=== PATIENT | female | born 1945 | race Caucasian/White ===

== ENCOUNTER → 2024-01-31 | Outpatient (BNVA) | payer MEDICARE, SELFPAY | END | disposition home or self-care (01) | PROVIDERS: PCP Internal Medicine; Referring Provider Internal Medicine; Visit Provider Urology | DX: C64.9 Malignant neoplasm of unspecified kidney, except renal pelvis (principal); Z90.5 Acquired absence of kidney; I12.9 Hypertensive chronic kidney disease with stage 1 through stage 4 chronic kidney disease, or unspecified chronic kidney disease; E11.22 Type 2 diabetes mellitus with diabetic chronic kidney disease; N18.30 Chronic kidney disease, stage 3 unspecified; E78.00 Pure hypercholesterolemia, unspecified | CPT/HCPCS: 81003; 99212; G0463 ==

== ENCOUNTER 2024-03-20 08:31 | Outpatient (RCR) | payer MEDICARE, SELFPAY ==
--- NOTE | 2024-03-26 05:12 | CTCCONSULT_ITS ---
Patient: MEHRDAD STOVALL : 1945 MR#: [id number] Page 2 of 2 CONSULTATION NOTE DATE OF CONSULTATION: 03/20/2024 NAME: MEHRDAD STOVALL ACCOUNT: [id number] : 1945 AGE: 79 REFERRING PHYSICIAN: Geraldo Sarkar MD PRIMARY PHYSICIAN: Won Hopson MD REASON FOR VISIT: New consult HISTORY OF PRESENT ILLNESS: 79-year-old female who underwent right renal nephrectomy after she was found to have a renal mass. P atient says that her surgery was last year and she has been doing well since that time. She was advi sed no further treatment needed but need closer monitoring and that is the reason she want to follow- up with us. 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 No left renal mass. 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 carvedilol - 25 mg 1 tab Twice a Day 2. hydrALAZINE - 100 mg 1 tab Daily 3. iron - 65 mg 1 tab Twice a Day 4. Miralax - 17 gram 1 dose Daily 5. Norvasc - 5 mg Twice a Day 6. Smitha-Jay - 1 tab Daily 7. valsartan-hydrochlorothiazide - 160-12.5 mg 1 tab Daily 8. Vitamin D3 - 1,000 unit 1 Capsule Daily Medications Last Reconciled by Nancy Hermosillo MD on 03/20/2024 ALLERGIES: No Known Allergies REVIEW OF SYSTEMS: A complete 14-point review of systems was performed and is negative except as noted in interval histo ry. PHYSICAL EXAMINATION: VITAL SIGNS: Temperature?97.1, B/P?129/74, Height?66?inches, Oxygen?Saturation?97% Weight?145?lbs PAIN: 0 - No pain ECOG Performance Status: 0 - Asymptomatic and fully active GENERAL APPEARANCE: Appears well, in no apparent distress, appropriately interactive. HEENT: Normocephalic, no temporal wasting, normal conjunctiva, no scleral icterus, normal hearing, li ps without lesions, neck normal range of motion. CARDIOVASCULAR: Not assessed. PULMONARY: Normal respiratory effort, no respiratory distress or use of accessory muscles, speaking i n full sentences, no tachypnea. EXTREMITIES: No pedal edema or cyanosis. SKIN: Normal skin appearance. NEUROLOGIC: Alert and ORIENTED x4. PSHYCHIATRIC: Appropriate affect, mood normal, behavior normal, intact thought and speech. LABORATORY DATA: I have personally reviewed and interpreted each of Ms. Stovall?s relevant lab tests, abnormal findin gs are below: Date IMPRESSION/PLAN: Serous cystadenoma of right kidney Patient had treatment with the right nephrectomy No lymphadenopathy on last CT scan No lymph nodes were removed Patient already planned for another imaging As patient is now single kidney patient, I will follow the imaging done at [facility] Discussed signs and symptoms of recurrent tumor CBC CMP Get records for patient's coming up appointments before my next appointment RETURN TO CLINIC: RTC in 6 months BILLING AND COMPLIANCE: I reviewed external records from providers outside my specialty as summarized above. I spent a total of 50 minutes on this patient?s care on the day of their visit excluding time spent related to any bi lled procedures. This time includes time spent with the patient as well as time spent documenting in the medical record, reviewing patients records and tests, obtaining history, placing orders, communi cating with other healthcare professionals, counseling the patient, family or caregiver, and/or care coordination for the diagnoses above. Electronically Signed by: Rodolfo Brooks MD T: 5:09 AM CC: Won?PAZ Hopson PCP: Won Hopson Referring: Geraldo Sarkar This document was completed utilizing speech recognition software. Grammatical errors, random word in sertions, pronoun errors, and incomplete sentences are an occasional consequence of this system due t o software limitations, ambient noise, and hardware issues. Any formal questions or concerns about th e content, text or information contained within the body of this dictation should be directly address ed to the provider for clarification.
== END 2024-04-10 23:59 | disposition home or self-care (01) ==
LOC: SCTC 08:31
PROVIDERS: PCP Internal Medicine; Referring Provider Urology; Visit Provider Internal Medicine Hematology & Oncology
DX: D30.01 Benign neoplasm of right kidney (principal); Z90.5 Acquired absence of kidney
CPT/HCPCS: 99213; G0463

== ENCOUNTER → 2024-04-27 | Outpatient (CLI) | payer MEDICARE, SELFPAY ==
--- NOTE | 2024-04-27 | XR_ITS ---
Examination: Sternum 2 views TECHNIQUE: Oblique lateral sternum 2 views Exam date and time: April 27, 2024 1142 hours INDICATIONS: Swelling below the sternum one month FINDINGS: Prominent osteopenia No sternal fracture No cortical bone obstruction IMPRESSION: No sternal fracture or cortical bone obstruction Consider ultrasound soft tissue sternum follow-up as clinically warranted
--- NOTE | 2024-04-27 | XR_ITS ---
Examination: Ribs, left, 4 views Technique left, RIBS AP, RPO, LPO, AP coned lower ribs 5 views Exam date and time: April 27, 2024 1142 hours INDICATIONS: Swelling and pain involving the left ribs this week Findings: Significant osteopenia No pneumothorax No cortical bone destruction involving the ribs No acute fracture IMPRESSION: No rib fractures
--- NOTE | 2024-04-27 | XR_ITS ---
Examination: PA lateral chest 2 views TECHNIQUE: Upright PA lateral chest 2 views Exam date and time: April 27, 2024 1146 hours INDICATIONS: Swelling below the sternum one month FINDINGS: COPD with moderate hyperexpansion Pleural parenchymal scarring left base Normal heart size No lobar pneumonia or pulmonary edema Severe osteopenia Sternum appears intact, soft tissue does appear prominent below the sternum IMPRESSION: COPD Sternum appears intact, soft tissue prominence below the sternum Consider CT scan chest abdomen postcontrast follow-up
== END | disposition home or self-care (01) ==
LOC: CDIM 10:51
PROVIDERS: PCP Internal Medicine; Referring Provider Internal Medicine; Visit Provider Internal Medicine
DX: R22.2 Localized swelling, mass and lump, trunk (principal); R07.81 Pleurodynia; J44.9 Chronic obstructive pulmonary disease, unspecified
CPT/HCPCS: 71046; 71101; 71120

== ENCOUNTER → 2024-05-29 | Outpatient (CLI) | payer MEDICARE, SELFPAY ==
[2024-05-29 12:03] LABS: Basophils % (Auto) 1 % (0-2.5); Eosinophils # (Auto) 0.1 Thou/mm3 (0.0-0.5); Eosinophils % (Auto) 3 % (0-10); Hematocrit 36.2 % (36.0-46.0); Hemoglobin 11.7 g/dL (12.0-16.0); Immature Granulocytes % (Auto) 1 % (0-0); Immature Granulocytes Auto 0.02 Thou/mm3 (0.00-0.00); Lymphocytes # (Auto) 1.1 Thou/mm3 (1.0-4.8); Lymphocytes % (Auto) 26 % (10-50); Mean Corpuscular HGB Conc 32.3 g/dl (31.0-37.0); Mean Corpuscular Hemoglobin 30.9 pg (25.0-35.0); Mean Corpuscular Volume 96 fL (80-100); Monocytes # (Auto) 0.3 Thou/mm3 (0.0-0.8); Monocytes % (Auto) 6 % (0-12); Neutrophils # (Auto) 2.7 Thou/mm3 (1.8-7.7); Neutrophils % (Auto) 63 % (37-80); Nucleated Red Blood Cell % 0 /100 WBC (0); Platelet Count 159 Thou/mm3 (140-440); Red Blood Count 3.79 Miln/mm3 (4.00-5.20); White Blood Count 4.2 Thou/mm3 (3.6-11.0)
[2024-05-29 12:20] LABS: Folate 18.85 ng/mL (>5.38); Vitamin B12 649 pg/mL (211-911)
[2024-05-29 12:27] LABS: Alanine Aminotransferase 14 U/L (10-49); Albumin, Serum 4.1 gm/dL (3.4-4.8); Albumin/Globulin Ratio 2.1 (1.2-2.2); Alkaline Phosphatase 70 U/L (46-116); Anion Gap 8 (7-16); Aspartate Amino Transferase 20 U/L (0-34); BUN/Creatinine Ratio 22 Ratio (12-20); Bilirubin,Total 0.5 mg/dL (0.3-1.2); Blood Urea Nitrogen 31 mg/dL (9-23); Calcium 10.4 mg/dL (8.3-10.6); Calcium (Corrected) 10.4 mg/dL (8.5-10.1); Carbon Dioxide 31.2 mMol/L (20.0-31.0); Chloride 106 mMol/L (98-107); Creatinine (Component) 1.4 mg/dL (0.6-1.3); Glucose 89 mg/dL (74-106); Osmolality,Calculated 294 (275-295); Sodium 145 mMol/L (136-145); Total Protein 6.1 gm/dL (5.7-8.2); eGFR 39 See Note
[2024-05-29 12:56] LABS: Ferritin 154 ng/mL (7.3-270.7); Total Iron Binding Capacity 267 mcg/dL (250-425)
[2024-05-29 13:06] LABS: Iron 72 mcg/dL (50-170); Percent Iron Saturation 26 % (20-55); Unsaturated Iron Binding 195 (225-295)
== END | disposition home or self-care (01) ==
LOC: COPL 11:08
PROVIDERS: PCP Urology; Referring Provider Internal Medicine Hematology & Oncology; Visit Provider Internal Medicine Hematology & Oncology
DX: C64.9 Malignant neoplasm of unspecified kidney, except renal pelvis (principal)
CPT/HCPCS: 36415; 80053; 82607; 82728; 82746; 83540; 83550; 85025

== ENCOUNTER → 2024-06-12 | Outpatient (CLI) | payer MEDICARE, SELFPAY ==
--- NOTE | 2024-06-12 13:00 | XR_ITS ---
Examination: CT abdomen and pelvis without contrast. Coronal 3-D reconstructions. Sagittal 2-D reconstructions. Date and time of exam:June 12, 2024 1255 hours Comparison January 30, 2024 INDICATIONS: Diagnosis malignant neoplasm right kidney except renal pelvis, surgery 2022 restaging CTDI: vol (mGy): 6.51 DLP: (mGycm): 318 Technique: Axial images of the abdomen have been obtained, 3 mm slice thickness Intravenous contrast material has not been administered. Low dose protocols were performed. One or more of the following dose reduction techniques were used; automated exposure control, adjustment of the mA and/or KV according to patient size, use of iterative reconstruction technique. Findings: Multiple subcentimeter pulmonary nodules No visualized liver or splenic lesion No pancreatic mass Absent right kidney no tumor mass in the right renal fossa No left renal mass lesion Subcentimeter periaortic lymph nodes again noted No bowel obstruction Colonic diverticulosis Contracted urinary bladder Prominent osteopenia IMPRESSION: Multiple subcentimeter pulmonary nodules, recommend CT chest without contrast follow-up to compare with the January 30, 2024 exam
== END | disposition home or self-care (01) ==
PROVIDERS: PCP Internal Medicine; Referring Provider Urology; Visit Provider Urology
DX: R91.8 Other nonspecific abnormal finding of lung field (principal); C64.1 Malignant neoplasm of right kidney, except renal pelvis
CPT/HCPCS: 74176

== ENCOUNTER 2024-06-21 13:02 | Outpatient (RCR) | payer MEDICARE, SELFPAY ==
--- NOTE | 2024-07-15 18:17 | CTCFLWUP_ITS ---
Patient: MEHRDAD STOVALL : 1945 Page 4 of 6 FOLLOW UP NOTE DATE OF SERVICE: 06/21/2024 NAME: MEHRDAD STOVALL ACCOUNT: [id number] : 1945 AGE: 79 INTERVAL HISTORY: No new complaints ONCOLOGY HISTORY:?[facility] Hx? 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 No left renal mass. Multiple thyroid nodules STAGE/TNM: T3 NX M0 TREATMENT HISTORY: Care?Plan Start?Date Cycle Day Intent HISTORY OF PRESENT ILLNESS: 79-year-old female who underwent right renal nephrectomy after she was found to have a renal mass. Patient says that her surgery was last year and she has been doing well since that time. She was advised no further treatment needed but need closer monitoring and that is the reason she want to follow-up with us. 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 carvedilol - 25 mg 1 tab Twice a Day 2. hydrALAZINE - 100 mg 1 tab Daily 3. iron - 65 mg 1 tab Twice a Day 4. Miralax - 17 gram 1 dose Daily 5. Norvasc - 5 mg Twice a Day 6. Smitha-Jay - 1 tab Daily 7. valsartan-hydrochlorothiazide - 160-12.5 mg 1 tab Daily 8. Vitamin D3 - 1,000 unit 1 Capsule Daily?Palabra Meds? Medications Last Reconciled by Kanika Hough MA on 06/21/2024 ALLERGIES: No Known Allergies REVIEW OF SYSTEMS: A complete 14-point review of systems was performed and is negative except as noted in interval history. PHYSICAL EXAMINATION:?[facility]Block PE? VITAL SIGNS: Temperature?98.2, B/P?152/77, Oxygen?Saturation?98% Weight?138?lbs PAIN: 0 - No pain GENERAL APPEARANCE: Appears well, in no apparent distress, appropriately interactive. HEENT: Normocephalic, no temporal wasting, normal conjunctiva, no scleral icterus, normal hearing, lips without lesions, neck normal range of motion. CARDIOVASCULAR: Not assessed. PULMONARY: Normal respiratory effort, no respiratory distress or use of accessory muscles, speaking in full sentences, no tachypnea. EXTREMITIES: No pedal edema or cyanosis. SKIN: Normal skin appearance. NEUROLOGIC: Alert and ORIENTED x4. PSHYCHIATRIC: Appropriate affect, mood normal, behavior normal, intact thought and speech. LABORATORY DATA: I have personally reviewed and interpreted each of the patient?s relevant lab tests, abnormal findings are below: Date 05/29/24 ??WHITE?BLOOD?COUNT?(Thou/mm3) 4.2 ??RED?BLOOD?COUNT?(Miln/mm3) 3.79?L ??HEMOGLOBIN?(gm/dl) 11.7?L ??HEMATOCRIT?(%) 36.2 ??PLATELET?COUNT?(Thou/mm3) 159 ??NEUTROPHILS?%,?AUTO?(%) 63 ??LYMPH?%,?AUTO?(%) 26 ??NEUTROPHILS,?AUTO?(Thou/mm3) 2.7 ??GLUCOSE,RANDOM?(mg/dL) 89 ??BLOOD?UREA?NITROGEN?(mg/dL) 31?H ??CREATININE?(mg/dL) 1.40?H ??SODIUM?(mmol/L) 145 ??POTASSIUM?(mmol/L) 4.0 ??CHLORIDE?(mmol/L) 106 ??CrCl?(CandG)?(ml/min) 34.94 ??AST/SGOT?(Unit/L) 20 ??ALT/SGPT?(Unit/L) 14 ??ALKALINE?PHOSPHATASE?(Unit/L) 70 ??BILIRUBIN,?TOTAL?(mg/dL) 0.5 ??PROTEIN?TOTAL?(gm/dl) 6.1 ??ALBUMIN,?SERUM?(gm/dl) 4.1 ??GLOBULIN?(gm/dl) 2.0?L ??ALBUMIN/GLOBULIN?RATIO 2.1 ??CALCIUM,?SERUM?(mg/dL) 10.4 ??CALCIUM?SERUM?(CORRECTED)?(mg/dL) 10.4?H ??TOTAL?IRON?BINDING?CAP?(S*)?(mcg/dL) 267 ??UNBOUND?IBC?(mcg/dL) 195?L ASSESSMENT/PLAN:?Sheron Brooks Assessment/Plan? Serous cystadenoma of right kidney Patient had treatment with the right nephrectomy No lymphadenopathy on last CT scan No lymph nodes were removed Patient already planned for another imaging As patient is now single kidney patient, I will follow the imaging done at [facility] Discussed signs and symptoms of recurrent tumor CBC CMP Get records for patient's coming up appointments before my next appointment CT scan 06/12/2024 showed multiple subcentimeter nodules recommendation is to repeat CT chest ORDERS: Order # Description [id number] Serum Protein Electrophoresis + Serum Immunofixation Electrophoresis + Beta-2 Microglobulin + Quant Immunoglobulins + Free kappa and lambda light chains plus ratio, quantitative [id number] Bone Scan, Whole body + DXA L-Spine and Hip [id number] Ferritin + Vitamin B-12 + Folic Acid; Serum [id number] Follow Up 2 Months RETURN TO CLINIC: 2 months BILLING AND COMPLIANCE: I reviewed external records from providers outside my specialty as summarized above. I spent a total of 50 minutes on this patient?s care on the day of their visit excluding time spent related to any billed procedures. This time includes time spent with the patient as well as time spent documenting in the medical record, reviewing patients records and tests, obtaining history, placing orders, communicating with other healthcare professionals, counseling the patient, family or caregiver, and/or care coordination for the diagnoses above. Electronically Signed by: Rodolfo Brooks MD T: 6:15 PM CC: Won?Emiliana? PCP: Won Hopson Referring: Won Hopson This document was completed utilizing speech recognition software. Grammatical errors, random word insertions, pronoun errors, and incomplete sentences are an occasional consequence of this system due to software limitations, ambient noise, and hardware issues. Any formal questions or concerns about the content, text or information contained within the body of this dictation should be directly addressed to the provider for clarification.
== END 2024-07-09 23:59 | disposition home or self-care (01) ==
LOC: SCTC 13:02
PROVIDERS: PCP Internal Medicine; Referring Provider Internal Medicine; Visit Provider Internal Medicine Hematology & Oncology
DX: D30.01 Benign neoplasm of right kidney (principal); Z90.5 Acquired absence of kidney; R91.8 Other nonspecific abnormal finding of lung field
CPT/HCPCS: 99212; G0463

== ENCOUNTER → 2024-06-21 | Outpatient (CLI) | payer MEDICARE, SELFPAY ==
[2024-06-21 16:11] LABS: Ferritin 187 ng/mL (7.3-270.7); Folate 23.83 ng/mL (>5.38); Vitamin B12 669 pg/mL (211-911)
[2024-07-02 05:04] LABS: Albumin 4.1 g/dL (3.8-4.8); Alpha-1-Globulin 0.2 g/dL (0.2-0.3); Alpha-2-Globulin 0.7 g/dL (0.5-0.9); Beta-1-Globulin 0.3 g/dL (0.4-0.6); Beta-2-globulin 0.3 g/dL (0.2-0.5); Gamma Globulin 0.7 g/dL (0.8-1.7); Immunoglobulin A 173 mg/dL (70-320); Immunoglobulin G 877 mg/dL (600-1540); Kappa Light Chain, Free 34.6 mg/L (3.3-19.4); Lambda Light Chain, Free 19.2 mg/L (5.7-26.3)
[2024-07-02 07:02] LABS: Beta 2 Microglobulin 4.09 mg/L (< OR = 2.51); Immunoglobulin M 41 mg/dL (50-300); Protein, total, serum 6.3 g/dL (6.1-8.1)
== END | disposition home or self-care (01) ==
PROVIDERS: PCP Internal Medicine; Referring Provider Internal Medicine Hematology & Oncology; Visit Provider Internal Medicine Hematology & Oncology
DX: C64.9 Malignant neoplasm of unspecified kidney, except renal pelvis (principal)
CPT/HCPCS: 36415; 82232; 82607; 82728; 82746; 82784; 83521; 84155; 84165; 86334

== ENCOUNTER → 2024-07-18 | Outpatient (CLI) | payer MEDICARE, SELFPAY ==
--- NOTE | 2024-07-18 12:30 | XR_ITS ---
Examination: Bone scan whole body, radioisotope Date and time of exam: July 18, 2024 1211 hrs. Indications: Diagnosis malignant neoplasm kidney status post hysterectomy November 01, 2023, restaging Technique: Study has been performed with intravenous administration of 25.6 mci 99M technetium MDP. Anterior, posterior whole body images are obtained. Images have been obtained including the lower extremities. Findings: Increased isotope accumulation L1 on the right side Asymmetric uptake about the knees Subtle increased uptake L5 on the left Impression: Positive bone scan but nonspecific, recommend plain films thoracic lumbar spine AP pelvis follow-up
== END | disposition home or self-care (01) ==
LOC: SNUC 08:28
PROVIDERS: PCP Internal Medicine; Referring Provider Internal Medicine Hematology & Oncology; Visit Provider Internal Medicine Hematology & Oncology
DX: R93.7 Abnormal findings on diagnostic imaging of other parts of musculoskeletal system (principal); C64.9 Malignant neoplasm of unspecified kidney, except renal pelvis
CPT/HCPCS: 78306; A9503

== ENCOUNTER → 2024-07-31 | Outpatient (BNVA) | payer MEDICARE, SELFPAY | END | disposition home or self-care (01) | PROVIDERS: PCP Internal Medicine; Referring Provider Internal Medicine; Visit Provider Urology | DX: N28.89 Other specified disorders of kidney and ureter (principal); E04.1 Nontoxic single thyroid nodule; I12.9 Hypertensive chronic kidney disease with stage 1 through stage 4 chronic kidney disease, or unspecified chronic kidney disease; E11.22 Type 2 diabetes mellitus with diabetic chronic kidney disease; N18.30 Chronic kidney disease, stage 3 unspecified; E78.00 Pure hypercholesterolemia, unspecified | CPT/HCPCS: 81003; 99212; G0463 ==

== ENCOUNTER → 2024-08-01 | Outpatient (CLI) | payer MEDICARE, SELFPAY ==
--- NOTE | 2024-08-01 12:40 | XR_ITS ---
Examination: Bone densitometry Date and time of exam:August 01, 2024 1246 hours INDICATIONS: Menopause age 52 diabetic rheumatoid arthritis diagnosis personal history osteopenia Technique: Lumbar spine and hip total bone mineralization values of an calculated. Peak reference and age match control results have been displayed. Findings: Lumbar spine total bone mineralization is1.134 gm/cm2. This is 0.8 standard deviations above peak reference. This is 3.3 standard deviations above age-matched controls. Hip total bone mineralization is 0.664 gm/cm2 This is 2.3 standard deviations below peak reference. This is 0.4 standard deviations below age-matched controls Impression: There is normal mineralization based on lumbar spine measurements. There is osteoporosis based on hip measurements Lumbar mineralization is decreased 3.7% compared with September 03, 2015 Hip mineralization is decreased 8.9% compared with September 03, 2015
== END | disposition home or self-care (01) ==
PROVIDERS: PCP Internal Medicine; Referring Provider Internal Medicine Hematology & Oncology; Visit Provider Internal Medicine Hematology & Oncology
DX: M85.88 Other specified disorders of bone density and structure, other site (principal)
CPT/HCPCS: 77080

== ENCOUNTER → 2024-08-08 | Outpatient (CLI) | payer MEDICARE, SELFPAY ==
--- NOTE | 2024-08-08 16:00 | XR_ITS ---
Examination: CT chest, without intravenous contrast. Sagittal and coronal 2-D reconstructions. Exam date and time: August 08, 2024 1707 hours Comparison January 30, 2024 chest abdomen and pelvis INDICATIONS: Diagnosis malignant neoplasm right kidney, multiple pulmonary nodules on CT chest abdomen and pelvis January 30, 2024 with stable periaortic lymph nodes restaging CTDI:vol (mGy) 8.72 DLP: (mGycm) 339 Technique: Multiple 3.0 mm axial sections of the chest to been obtained. Bone and lung density settings are obtained. Sagittal and coronal 2-D reconstructions have been obtained. Low dose protocols were performed. One or more of the following dose reduction techniques were used; automated exposure control, adjustment of the mA and/or KV according to patient size, use of iterative reconstruction technique. Findings: Multiple bilateral thyroid nodules several calcified No thoracic aortic aneurysm dilatation. Main pulmonary artery segment measures 36 mm No paratracheal tracheobronchial or bronchopulmonary adenopathy No change in size of the multiple bilateral pulmonary nodules, no new pulmonary nodules No interval pneumonia or pulmonary edema Trace pericardial effusion measuring up to 3 mm No visualized liver or splenic lesion Left kidney is visualized no hydronephrosis Prominent osteopenia IMPRESSION: Stable bilateral subcentimeter pulmonary nodules, no new pulmonary nodules compared with January 30, 2024
== END | disposition home or self-care (01) ==
LOC: CCTX 16:12
PROVIDERS: PCP Internal Medicine; Referring Provider Internal Medicine Hematology & Oncology; Visit Provider Internal Medicine Hematology & Oncology
DX: R91.8 Other nonspecific abnormal finding of lung field (principal); C64.9 Malignant neoplasm of unspecified kidney, except renal pelvis
CPT/HCPCS: 71250

== ENCOUNTER 2024-08-23 14:13 | Outpatient (RCR) | payer MEDICARE, SELFPAY ==
--- NOTE | 2024-08-30 14:18 | CTCFLWUP_ITS ---
Patient: MEHRDAD TREVINO : 1945 Page 6 of 8 FOLLOW UP NOTE DATE OF SERVICE: 08/23/2024 NAME: MEHRDAD TREVINO ACCOUNT: [id number] : 1945 AGE: 79 INTERVAL HISTORY: Subjective: Chief Complaint Follow-up for right kidney cystadenoma, review of CT scan results, evaluation of bone density History of Present Illness Mehrdad Trevino, a female patient with a history of right ovarian cancer, cystadenoma, and right kidney nephrectomy, presents for follow-up of multiple conditions including lung nodules and bone health concerns. The patient's lung nodules, previously identified on a CT scan in June, are reported to be stable with no new nodules detected. 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 The patient has been diagnosed with osteoporosis of the hips, with bone density reported to be weaker compared to 2016. Regarding medication adherence, the patient reports taking vitamin D3 daily, Renalite for kidney health, and a supplement for eye health containing vitamins A, E, B12, selenium, and copper. She also takes iron every other day at night. However, she is not currently taking calcium or a multivitamin as recommended. The patient's right kidney cystadenoma, which was previously removed, shows no signs of recurrence. There is no mention of any current symptoms or functional impairments related to her medical conditions. Medications and Supplements - Vitamin D3 - Taken daily with food at lunchtime - Renalite - Taken for kidney health - Eye supplement - Contains vitamin A, E, B12, selenium, and copper - Iron - Taken every other day at night Review of Systems Musculoskeletal: Positive for arthritis in spine. 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 No left renal mass. Multiple thyroid nodules STAGE/TNM: T3 NX M0 TREATMENT HISTORY: Care?Plan Start?Date Cycle Day Intent Zoledronic?Acid?4?mg?adjuvant 08/23/2024 1 180 Maintenance HISTORY OF PRESENT ILLNESS: 79-year-old female who underwent right renal nephrectomy after she was found to have a renal mass. Patient says that her surgery was last year and she has been doing well since that time. She was advised no further treatment needed but need closer monitoring and that is the reason she want to follow-up with us. OTHER MEDICAL HISTORY/CONDITIONS: CHRONIC RENAL INSUFFICIENCY DIABETES MELLITUS HYPERTENSION RIGHT KIDNEY MASS RIGHT OVARIAN MASS MEASLES/MUMPS/RUBELLA A CHILD CHICKENPOX CHILD TONSILLITIS VALLEY FEVER IN 1994 RIGHT RADICAL NEPHRECTOMY AT [facility] 11/04/22 BILATERAL SALPINGO-OOPHERECTOMY BY DR JORGE [facility] CHOLECYSTECTOMY AT 32YRS FAMILY HISTORY: Father:?DENIES Mother:?DENIES Sibling:?DENIES Children:?DENIES?,?NO?CHILDREN Cancer History:?RIGHT KIDNEY RENAL CELL CA 10/2022 SOCIAL HISTORY: Occupational?History:?RETIRED [employer] Education?Level:?College Graduate, 4 year degree Marital?Status:?Single Tobacco?Use:?STOPPED?SMOKING?IN?1971 ETOH?Use:?DENIES Drug?Note:?DENIES Social?History?Note:?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 acetaminophen - 325 mg tab As directed 2. carvedilol - 25 mg 1 tab Twice a Day 3. hydrALAZINE - 100 mg 1 tab Daily 4. iron - 65 mg 1 tab Every other day 5. Miralax - 17 gram 1 dose Daily 6. Norvasc - 5 mg Twice a Day 7. Smitha-Jay - 1 tab Daily 8. valsartan-hydrochlorothiazide - 160-12.5 mg 1 tab Daily 9. Vision Formula - 1 tab Daily 10. Vitamin D3 - 1,000 unit 1 Capsule Daily Medications Last Reconciled by Eun Holder RN on 08/23/2024 ALLERGIES: No Known Allergies REVIEW OF SYSTEMS: A complete 14-point review of systems was performed and is negative except as noted in interval history. PHYSICAL EXAMINATION: VITAL SIGNS: Temperature?99.2, B/P?149/70, Oxygen?Saturation?98% Weight?139?lbs PAIN: 0 - No pain ECOG Performance Status: 0 - Asymptomatic and fully active GENERAL APPEARANCE: Appears well, in no apparent distress, appropriately interactive. HEENT: Normocephalic, no temporal wasting, normal conjunctiva, no scleral icterus, normal hearing, lips without lesions, neck normal range of motion. CARDIOVASCULAR: Not assessed. PULMONARY: Normal respiratory effort, no respiratory distress or use of accessory muscles, speaking in full sentences, no tachypnea. EXTREMITIES: No pedal edema or cyanosis. SKIN: Normal skin appearance. NEUROLOGIC: Alert and ORIENTED x4. PSHYCHIATRIC: Appropriate affect, mood normal, behavior normal, intact thought and speech. LABORATORY DATA: I have personally reviewed and interpreted each of the patient?s relevant lab tests, abnormal findings are below: Date 05/29/24 ??WHITE?BLOOD?COUNT?(Thou/mm3) 4.2 ??RED?BLOOD?COUNT?(Miln/mm3) 3.79?L ??HEMOGLOBIN?(gm/dl) 11.7?L ??HEMATOCRIT?(%) 36.2 ??PLATELET?COUNT?(Thou/mm3) 159 ??NEUTROPHILS?%,?AUTO?(%) 63 ??LYMPH?%,?AUTO?(%) 26 ??NEUTROPHILS,?AUTO?(Thou/mm3) 2.7 ??GLUCOSE,RANDOM?(mg/dL) 89 ??BLOOD?UREA?NITROGEN?(mg/dL) 31?H ??CREATININE?(mg/dL) 1.40?H ??SODIUM?(mmol/L) 145 ??POTASSIUM?(mmol/L) 4.0 ??CHLORIDE?(mmol/L) 106 ??CrCl?(CandG)?(ml/min) 34.94 ??AST/SGOT?(Unit/L) 20 ??ALT/SGPT?(Unit/L) 14 ??ALKALINE?PHOSPHATASE?(Unit/L) 70 ??BILIRUBIN,?TOTAL?(mg/dL) 0.5 ??PROTEIN?TOTAL?(gm/dl) 6.1 ??ALBUMIN,?SERUM?(gm/dl) 4.1 ??GLOBULIN?(gm/dl) 2.0?L ??ALBUMIN/GLOBULIN?RATIO 2.1 ??CALCIUM,?SERUM?(mg/dL) 10.4 ??CALCIUM?SERUM?(CORRECTED)?(mg/dL) 10.4?H ??TOTAL?IRON?BINDING?CAP?(S*)?(mcg/dL) 267 ??UNBOUND?IBC?(mcg/dL) 195?L ASSESSMENT/PLAN: Serous cystadenoma of right kidney Patient had treatment with the right nephrectomy No lymphadenopathy on last CT scan No lymph nodes were removed Patient already planned for another imaging As patient is now single kidney patient, I will follow the imaging done at [facility] Discussed signs and symptoms of recurrent tumor Get records for patient's coming up appointments before my next appointment CT scan 06/12/2024 showed multiple subcentimeter nodules recommendation is to repeat CT chest Assessment and Plan: Mehrdad Trevino, female patient with history of right ovarian cystadenoma and nephrectomy, presenting for follow-up of multiple medical conditions including osteoporosis and lung nodules. Osteoporosis Assessment: Patient has osteoporosis of the hips, confirmed by recent bone density scan. Bone density has decreased since 2016. Currently not taking calcium or vitamin D supplements regularly. Plan: - Start annual infusion therapy for osteoporosis, pending insurance approval - Start Centrum Silver (multivitamin for women over 50) 1 tablet PO daily with lunch - Continue vitamin D3 supplementation daily with food, preferably at lunchtime - Avoid taking other medications with vitamin D3 Lung Nodules Assessment: Patient has stable lymph nodules in both lungs, as seen on recent CT scan. No new nodules identified. 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 Valley fever can cause osteolytic lesions. Additional findings at L4-L5 level, likely arthritic in nature. Plan: - Continue monitoring History of Right Ovarian Cystadenoma and Nephrectomy Assessment: Patient has a history of right ovarian cystadenoma and nephrectomy. No evidence of tumor recurrence. Plan: - Continue regular follow-up and monitoring Chronic Kidney Disease Assessment: Patient has a history of right kidney removal (nephrectomy). Currently taking Renalite as prescribed by Dr. Esqueda for kidney health. Plan: - Continue Renalite as prescribed - Encourage increased water intake ORDERS: Order # Description [id number] Infusion 1 Hour [id number] Infusion 1 Hour [id number] Infusion 1 Hour [id number] Infusion 1 Hour [id number] Infusion 1 Hour RETURN TO CLINIC: BILLING AND COMPLIANCE: I reviewed external records from providers outside my specialty as summarized above. I spent a total of 50 minutes on this patient?s care on the day of their visit excluding time spent related to any billed procedures. This time includes time spent with the patient as well as time spent documenting in the medical record, reviewing patients records and tests, obtaining history, placing orders, communicating with other healthcare professionals, counseling the patient, family or caregiver, and/or care coordination for the diagnoses above. Electronically Signed by: Rodolfo Brooks MD T: 6:56 AM CC: Won?PAZ Hopson PCP: Won Hopson Referring: Won Hopson This document was completed utilizing speech recognition software. Grammatical errors, random word insertions, pronoun errors, and incomplete sentences are an occasional consequence of this system due to software limitations, ambient noise, and hardware issues. Any formal questions or concerns about the content, text or information contained within the body of this dictation should be directly addressed to the provider for clarification.
== END 2024-09-08 23:59 | disposition home or self-care (01) ==
LOC: SCTC 14:13
PROVIDERS: PCP Internal Medicine; Referring Provider Internal Medicine; Visit Provider Internal Medicine Hematology & Oncology
DX: M81.0 Age-related osteoporosis without current pathological fracture (principal); R91.8 Other nonspecific abnormal finding of lung field; Z90.5 Acquired absence of kidney; Z85.43 Personal history of malignant neoplasm of ovary; M89.9 Disorder of bone, unspecified
CPT/HCPCS: 99212; G0463

== ENCOUNTER → 2024-10-09 | Outpatient (CLI) | payer MEDICARE, SELFPAY ==
[2024-10-09 11:32] LABS: Basophils # (Auto) 0.1 Thou/mm3 (0.0-0.2); Basophils % (Auto) 1 % (0-2.5); Eosinophils # (Auto) 0.2 Thou/mm3 (0.0-0.5); Eosinophils % (Auto) 4 % (0-10); Hematocrit 34.3 % (36.0-46.0); Hemoglobin 11.4 g/dL (12.0-16.0); Immature Granulocytes Auto 0.01 Thou/mm3 (0.00-0.00); Lymphocytes # (Auto) 1.0 Thou/mm3 (1.0-4.8); Lymphocytes % (Auto) 26 % (10-50); Mean Corpuscular HGB Conc 33.2 g/dl (31.0-37.0); Mean Corpuscular Hemoglobin 31.4 pg (25.0-35.0); Mean Corpuscular Volume 95 fL (80-100); Monocytes # (Auto) 0.4 Thou/mm3 (0.0-0.8); Monocytes % (Auto) 10 % (0-12); Neutrophils # (Auto) 2.4 Thou/mm3 (1.8-7.7); Neutrophils % (Auto) 60 % (37-80); Nucleated Red Blood Cell # 0.00 Thou/mm3 (0.00-0.00); Nucleated Red Blood Cell % 0 /100 WBC (0); Platelet Count 136 Thou/mm3 (140-440); RDW Standard Deviation 44.8 fL (36.4-46.3); Red Blood Count 3.63 Miln/mm3 (4.00-5.20); White Blood Count 4.0 Thou/mm3 (3.6-11.0)
[2024-10-09 11:51] LABS: Alanine Aminotransferase 11 U/L (10-49); Albumin, Serum 4.0 gm/dL (3.4-4.8); Albumin/Globulin Ratio 1.7 (1.2-2.2); Alkaline Phosphatase 70 U/L (46-116); Anion Gap 5 (7-16); Aspartate Amino Transferase 22 U/L (0-34); BUN/Creatinine Ratio 18 Ratio (12-20); Bilirubin,Total 0.6 mg/dL (0.3-1.2); Blood Urea Nitrogen 23 mg/dL (9-23); Calcium 9.7 mg/dL (8.3-10.6); Calcium (Corrected) 9.7 mg/dL (8.5-10.1); Carbon Dioxide 33.1 mMol/L (20.0-31.0); Chloride 107 mMol/L (98-107); Creatinine (Component) 1.3 mg/dL (0.6-1.3); Globulin 2.4 gm/dL (2.3-3.5); Glucose 90 mg/dL (74-106); Osmolality,Calculated 292 (275-295); Potassium 4.2 mMol/L (3.4-5.1); Sodium 145 mMol/L (136-145); Total Protein 6.4 gm/dL (5.7-8.2); eGFR 42 See Note
== END | disposition home or self-care (01) ==
LOC: SCTO 10:36
PROVIDERS: PCP Internal Medicine; Referring Provider Internal Medicine Hematology & Oncology; Visit Provider Internal Medicine Hematology & Oncology
DX: C64.9 Malignant neoplasm of unspecified kidney, except renal pelvis (principal); M80.8B Other osteoporosis with current pathological fracture, pelvis
CPT/HCPCS: 36415; 80053; 85025

== ENCOUNTER → 2024-10-10 | Outpatient (CLI) | payer MEDICARE, SELFPAY ==
[2024-10-10 09:17] LABS: Collection Type, Urine Clean Catch
[2024-10-10 09:36] LABS: Basophils # (Auto) 0.1 Thou/mm3 (0.0-0.2); Basophils % (Auto) 2 % (0-2.5); Eosinophils # (Auto) 0.1 Thou/mm3 (0.0-0.5); Eosinophils % (Auto) 4 % (0-10); Hematocrit 36.2 % (36.0-46.0); Hemoglobin 11.9 g/dL (12.0-16.0); Immature Granulocytes Auto 0.01 Thou/mm3 (0.00-0.00); Lymphocytes # (Auto) 1.0 Thou/mm3 (1.0-4.8); Lymphocytes % (Auto) 26 % (10-50); Mean Corpuscular HGB Conc 32.9 g/dl (31.0-37.0); Mean Corpuscular Hemoglobin 31.6 pg (25.0-35.0); Mean Corpuscular Volume 96 fL (80-100); Monocytes # (Auto) 0.3 Thou/mm3 (0.0-0.8); Monocytes % (Auto) 8 % (0-12); Neutrophils # (Auto) 2.3 Thou/mm3 (1.8-7.7); Neutrophils % (Auto) 60 % (37-80); Nucleated Red Blood Cell # 0.00 Thou/mm3 (0.00-0.00); Nucleated Red Blood Cell % 0 /100 WBC (0); Platelet Count 141 Thou/mm3 (140-440); RDW Standard Deviation 45.2 fL (36.4-46.3); Red Blood Count 3.76 Miln/mm3 (4.00-5.20); White Blood Count 3.7 Thou/mm3 (3.6-11.0)
[2024-10-10 09:48] LABS: Amorphous Crystals,Urine Present (Absent); Bilirubin,Urine Negative (Negative); Blood,Urine Negative (Negative); Color,Urine Yellow (Lt Yel-Yel); Glucose, Urine Negative (Negative); Hyaline Casts,Urine < 1 /hpf (0-1); Ketones,Urine Negative (Negative); Leukocyte Esterase,Urine Negative (Negative); Nitrite,Urine Negative (Negative); PH,Urine 6.5 (5.0-7.0); Protein,Urine Trace (Neg - Trace); RBC,Urine 4 /hpf (0-3); Specific Gravity,Urine 1.021 (1.001-1.035); Squamous Epithelial Cell,Urine < 1 /hpf (0-5); Urobilinogen,Urine Negative mg/dL (0.0-1.0); WBC,Urine 3 /hpf (0-5)
[2024-10-10 09:50] LABS: Glucose Estimated Average 97 mg/dL (80-131); Hemoglobin A1C 5.0 % Hgb (4.8-6.0)
[2024-10-10 09:55] LABS: Creatinine,Random Urine 123 mg/dL (30-125)
[2024-10-10 09:59] LABS: Vitamin D 25 Hydroxy Total 77.0 ng/mL (7.3-40.2)
[2024-10-10 10:01] LABS: Clarity,Urine Hazy (Clear/Hazy)
[2024-10-10 10:09] LABS: Alanine Aminotransferase 12 U/L (10-49); Albumin, Serum 4.1 gm/dL (3.4-4.8); Albumin/Globulin Ratio 1.8 (1.2-2.2); Alkaline Phosphatase 70 U/L (46-116); Anion Gap 6 (7-16); Aspartate Amino Transferase 21 U/L (0-34); BUN/Creatinine Ratio 17 Ratio (12-20); Bilirubin,Total 0.6 mg/dL (0.3-1.2); Blood Urea Nitrogen 24 mg/dL (9-23); Calcium 9.8 mg/dL (8.3-10.6); Calcium (Corrected) 9.8 mg/dL (8.5-10.1); Carbon Dioxide 32.1 mMol/L (20.0-31.0); Cardiac Risk Estimate 3.7 RATIO (3.7-5.6); Chloride 108 mMol/L (98-107); Cholesterol 208 mg/dL (132-200); Creatinine (Component) 1.4 mg/dL (0.6-1.3); Globulin 2.3 gm/dL (2.3-3.5); Glucose 93 mg/dL (74-106); HDL Cholesterol 56 mg/dL (40-60); LDL Cholesterol,Calculated 134 mg/dL (0-130); Osmolality,Calculated 294 (275-295); Potassium 3.8 mMol/L (3.4-5.1); Sodium 146 mMol/L (136-145); Thyroid Stimulating Hormone 1.37 uIU/mL (0.55-4.78); Total Protein 6.4 gm/dL (5.7-8.2); Triglycerides 89 mg/dL (30-150); eGFR 39 See Note
== END | disposition home or self-care (01) ==
PROVIDERS: PCP Internal Medicine; Referring Provider Internal Medicine; Visit Provider Internal Medicine
DX: I12.9 Hypertensive chronic kidney disease with stage 1 through stage 4 chronic kidney disease, or unspecified chronic kidney disease (principal); E11.22 Type 2 diabetes mellitus with diabetic chronic kidney disease; N18.30 Chronic kidney disease, stage 3 unspecified; E78.5 Hyperlipidemia, unspecified; E55.9 Vitamin D deficiency, unspecified
CPT/HCPCS: 36415; 80053; 80061; 81001; 82306; 82570; 83036; 84443; 85025

== ENCOUNTER → 2024-10-11 | Outpatient (CLI) | payer MEDICARE, SELFPAY ==
--- NOTE | 2024-10-11 10:45 | XR_ITS ---
Examination: Retroperitoneal ultrasound, complete Technique: Multiple high resolution grayscale images of the retroperitoneum obtained, including kidneys and bladder. Exam date and time:October 11, 2024 1041 hours INDICATIONS: History right renal cell carcinoma nephrectomy October 2022 FINDINGS: Absent right kidney Left kidney 11.0 cm renal cortex 1.6 cm No solid renal mass lesion Contracted urinary bladder IMPRESSION: No solid left renal lesion
== END | disposition home or self-care (01) ==
PROVIDERS: PCP Internal Medicine; Referring Provider Internal Medicine; Visit Provider Internal Medicine
DX: N17.9 Acute kidney failure, unspecified (principal)
CPT/HCPCS: 76770

== ENCOUNTER 2024-10-16 13:17 | Outpatient (RCR) | payer MEDICARE, SELFPAY | END 2024-11-08 23:59 | disposition home or self-care (01) | LOC: SCTC 13:17 | PROVIDERS: PCP Internal Medicine; Referring Provider Internal Medicine; Visit Provider Internal Medicine Hematology & Oncology | DX: M81.0 Age-related osteoporosis without current pathological fracture (principal) | CPT/HCPCS: 96365; J3489 ==

== ENCOUNTER → 2024-12-04 | Outpatient (CLI) | payer MEDICARE, SELFPAY ==
[2024-12-04 09:35] LABS: Basophils # (Auto) 0.0 Thou/mm3 (0.0-0.2); Basophils % (Auto) 1 % (0-2.5); Eosinophils # (Auto) 0.1 Thou/mm3 (0.0-0.5); Eosinophils % (Auto) 4 % (0-10); Hematocrit 37.6 % (36.0-46.0); Hemoglobin 12.2 g/dL (12.0-16.0); Immature Granulocytes Auto 0.01 Thou/mm3 (0.00-0.00); Lymphocytes # (Auto) 0.8 Thou/mm3 (1.0-4.8); Lymphocytes % (Auto) 22 % (10-50); Mean Corpuscular HGB Conc 32.4 g/dl (31.0-37.0); Mean Corpuscular Hemoglobin 31.2 pg (25.0-35.0); Mean Corpuscular Volume 96 fL (80-100); Monocytes # (Auto) 0.3 Thou/mm3 (0.0-0.8); Monocytes % (Auto) 9 % (0-12); Neutrophils # (Auto) 2.3 Thou/mm3 (1.8-7.7); Neutrophils % (Auto) 64 % (37-80); Nucleated Red Blood Cell # 0.00 Thou/mm3 (0.00-0.00); Nucleated Red Blood Cell % 0 /100 WBC (0); Platelet Count 131 Thou/mm3 (140-440); RDW Standard Deviation 46.1 fL (36.4-46.3); Red Blood Count 3.91 Miln/mm3 (4.00-5.20); White Blood Count 3.7 Thou/mm3 (3.6-11.0)
[2024-12-04 09:51] LABS: Glucose Estimated Average 97 mg/dL (80-131); Hemoglobin A1C 5.0 % Hgb (4.8-6.0)
[2024-12-04 09:56] LABS: Alanine Aminotransferase 11 U/L (10-49); Albumin, Serum 4.2 gm/dL (3.4-4.8); Albumin/Globulin Ratio 2.0 (1.2-2.2); Alkaline Phosphatase 66 U/L (46-116); Anion Gap 9 (7-16); Aspartate Amino Transferase 23 U/L (0-34); BUN/Creatinine Ratio 16 Ratio (12-20); Bilirubin,Total 0.7 mg/dL (0.3-1.2); Blood Urea Nitrogen 21 mg/dL (9-23); Calcium 10.0 mg/dL (8.3-10.6); Calcium (Corrected) 10.0 mg/dL (8.5-10.1); Carbon Dioxide 30.1 mMol/L (20.0-31.0); Cardiac Risk Estimate 2.5 RATIO (3.7-5.6); Chloride 108 mMol/L (98-107); Cholesterol 150 mg/dL (132-200); Creatinine (Component) 1.3 mg/dL (0.6-1.3); Free T4 (Free Thyroxine) 1.16 ng/dL (0.89-1.76); Globulin 2.1 gm/dL (2.3-3.5); Glucose 80 mg/dL (74-106); HDL Cholesterol 61 mg/dL (40-60); LDL Cholesterol,Calculated 74 mg/dL (0-130); Osmolality,Calculated 294 (275-295); Potassium 4.2 mMol/L (3.4-5.1); Sodium 147 mMol/L (136-145); Thyroid Stimulating Hormone 1.34 uIU/mL (0.55-4.78); Total Protein 6.3 gm/dL (5.7-8.2); Triglycerides 73 mg/dL (30-150); eGFR 42 See Note
[2024-12-04 09:57] LABS: Vitamin D 25 Hydroxy Total 71.1 ng/mL (7.3-40.2)
== END | disposition home or self-care (01) ==
PROVIDERS: PCP Internal Medicine; Referring Provider Internal Medicine; Visit Provider Internal Medicine
DX: I11.0 Hypertensive heart disease with heart failure (principal); E11.9 Type 2 diabetes mellitus without complications; E55.9 Vitamin D deficiency, unspecified; E03.9 Hypothyroidism, unspecified
CPT/HCPCS: 36415; 80053; 80061; 82306; 83036; 84439; 84443; 85025

== ENCOUNTER → 2024-12-17 | Outpatient (BNVA) | payer MEDICARE, SELFPAY | END | disposition home or self-care (01) | PROVIDERS: PCP Internal Medicine; Referring Provider Internal Medicine; Visit Provider Urology | DX: C64.1 Malignant neoplasm of right kidney, except renal pelvis (principal); E11.22 Type 2 diabetes mellitus with diabetic chronic kidney disease; I12.9 Hypertensive chronic kidney disease with stage 1 through stage 4 chronic kidney disease, or unspecified chronic kidney disease; N18.30 Chronic kidney disease, stage 3 unspecified | CPT/HCPCS: 81003; 99212; G0463 ==

== ENCOUNTER → 2025-02-20 | Outpatient (CLI) | payer MEDICARE, SELFPAY ==
[2025-02-20 12:09] LABS: Basophils # (Auto) 0.0 Thou/mm3 (0.0-0.2); Basophils % (Auto) 1 % (0-2.5); Eosinophils # (Auto) 0.2 Thou/mm3 (0.0-0.5); Eosinophils % (Auto) 4 % (0-10); Hematocrit 36.4 % (36.0-46.0); Hemoglobin 12.0 g/dL (12.0-16.0); Immature Granulocytes Auto 0.01 Thou/mm3 (0.00-0.00); Lymphocytes # (Auto) 1.0 Thou/mm3 (1.0-4.8); Lymphocytes % (Auto) 23 % (10-50); Mean Corpuscular HGB Conc 33.0 g/dl (31.0-37.0); Mean Corpuscular Hemoglobin 31.7 pg (25.0-35.0); Mean Corpuscular Volume 96 fL (80-100); Monocytes # (Auto) 0.3 Thou/mm3 (0.0-0.8); Monocytes % (Auto) 8 % (0-12); Neutrophils # (Auto) 2.8 Thou/mm3 (1.8-7.7); Neutrophils % (Auto) 65 % (37-80); Nucleated Red Blood Cell # 0.00 Thou/mm3 (0.00-0.00); Nucleated Red Blood Cell % 0 /100 WBC (0); Platelet Count 143 Thou/mm3 (140-440); RDW Standard Deviation 45.4 fL (36.4-46.3); Red Blood Count 3.79 Miln/mm3 (4.00-5.20); White Blood Count 4.3 Thou/mm3 (3.6-11.0)
[2025-02-20 12:22] LABS: Alanine Aminotransferase 13 U/L (10-49); Albumin, Serum 4.4 gm/dL (3.4-4.8); Albumin/Globulin Ratio 2.3 (1.2-2.2); Alkaline Phosphatase 59 U/L (46-116); Anion Gap 7 (7-16); Aspartate Amino Transferase 22 U/L (0-34); BUN/Creatinine Ratio 17 Ratio (12-20); Bilirubin,Total 0.5 mg/dL (0.3-1.2); Blood Urea Nitrogen 22 mg/dL (9-23); Calcium 10.0 mg/dL (8.3-10.6); Calcium (Corrected) 10.0 mg/dL (8.5-10.1); Carbon Dioxide 34.3 mMol/L (20.0-31.0); Chloride 106 mMol/L (98-107); Creatinine (Component) 1.3 mg/dL (0.6-1.3); Globulin 1.9 gm/dL (2.3-3.5); Glucose 95 mg/dL (74-106); Osmolality,Calculated 295 (275-295); Potassium 4.0 mMol/L (3.4-5.1); Sodium 147 mMol/L (136-145); Total Protein 6.3 gm/dL (5.7-8.2); eGFR 42 See Note
[2025-02-20 12:42] LABS: CA 125 16.0 U/mL (<30.2)
== END | disposition home or self-care (01) ==
LOC: SCTO 10:44
PROVIDERS: PCP Internal Medicine; Referring Provider Internal Medicine Hematology & Oncology; Visit Provider Internal Medicine Hematology & Oncology
DX: C64.9 Malignant neoplasm of unspecified kidney, except renal pelvis (principal); M80.8B Other osteoporosis with current pathological fracture, pelvis
CPT/HCPCS: 36415; 80053; 85025; 86304

== ENCOUNTER 2025-02-27 13:30 | Outpatient (RCR) | payer MEDICARE, SELFPAY ==
--- NOTE | 2025-02-27 15:16 | CTCFLWUP_ITS ---
Patient: MEHRDAD STOVALL : 1945 Page 6 of 8 FOLLOW UP NOTE DATE OF SERVICE: 02/27/2025 NAME: MEHRDAD STOVALL ACCOUNT: [id number] : 1945 AGE: 79 INTERVAL HISTORY: Subjective: Chief Complaint Follow-up for right kidney cystadenoma, review of CT scan results, osteoporosis noted on bone density History of Present Illness Mehrdad Stovall, a female patient with a history of right ovarian cancer, cystadenoma, and right kidney nephrectomy, presents for follow-up of multiple conditions including lung nodules and bone health concerns. The patient's lung nodules, previously identified on a CT scan in June, are reported to be stable with no new nodules detected. 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 The patient has been diagnosed with osteoporosis of the hips, with bone density reported to be weaker compared to 2016. Regarding medication adherence, the patient reports taking vitamin D3 daily, Renalite for kidney health, and a supplement for eye health containing vitamins A, E, B12, selenium, and copper. She also takes iron every other day at night. However, she is not currently taking calcium or a multivitamin as recommended. The patient's right kidney cystadenoma, which was previously removed, shows no signs of recurrence. There is no mention of any current symptoms or functional impairments related to her medical conditions. Medications and Supplements - Vitamin D3 - Taken daily with food at lunchtime - Renalite - Taken for kidney health - Eye supplement - Contains vitamin A, E, B12, selenium, and copper - Iron - Taken every other day at night Review of Systems Musculoskeletal: Positive for arthritis in spine. 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 No left renal mass. Multiple thyroid nodules STAGE/TNM: T3 NX M0 TREATMENT HISTORY: Care?Plan Start?Date Cycle Day Intent Zoledronic?Acid?4?mg?adjuvant 10/16/2024 1 180 Maintenance HISTORY OF PRESENT ILLNESS: 79-year-old female who underwent right renal nephrectomy after she was found to have a renal mass. Patient says that her surgery was last year and she has been doing well since that time. She was advised no further treatment needed but need closer monitoring and that is the reason she want to follow-up with us. OTHER MEDICAL HISTORY/CONDITIONS: CHRONIC RENAL INSUFFICIENCY DIABETES MELLITUS HYPERTENSION RIGHT KIDNEY MASS RIGHT OVARIAN MASS MEASLES/MUMPS/RUBELLA A CHILD CHICKENPOX CHILD TONSILLITIS VALLEY FEVER IN 1994 RIGHT RADICAL NEPHRECTOMY AT [facility] 11/04/22 BILATERAL SALPINGO-OOPHERECTOMY BY DR JORGE [facility] CHOLECYSTECTOMY AT 32YRS FAMILY HISTORY: Father:?DENIES Mother:?DENIES Sibling:?DENIES Children:?DENIES?,?NO?CHILDREN Cancer History:?RIGHT KIDNEY RENAL CELL CA 10/2022 SOCIAL HISTORY: Occupational?History:?RETIRED [employer] Education?Level:?College Graduate, 4 year degree Marital?Status:?Single Tobacco?Use:?STOPPED?SMOKING?IN?1971 ETOH?Use:?DENIES Drug?Note:?DENIES Social?History?Note:?LIVES?[place]ONE [employer] HISTORY: Menarche?-?Age:?14 Hormone?Use:?BC?PILLS?IN?PAST :?0 Live?Births:?0 Gynecological?Note:?LAST MENSES AT 58YEARS OLD Gynecological?Note?2:?DandC?IN?1970'S MEDICATIONS: 1. acetaminophen - 325 mg tab As directed 2. carvedilol - 25 mg 1 tab Twice a Day 3. hydrALAZINE - 100 mg 1 tab Daily 4. iron - 65 mg 1 tab Every other day 5. Miralax - 17 gram 1 dose Daily 6. Norvasc - 5 mg Twice a Day 7. Smitha-Jay - 1 tab Daily 8. valsartan-hydrochlorothiazide - 160-12.5 mg 1 tab Daily 9. Vision Formula - 1 tab Daily 10. Vitamin D3 - 1,000 unit 1 Capsule Daily Medications Last Reconciled by Myra Celeste MD on 02/27/2025 ALLERGIES: No Known Allergies REVIEW OF SYSTEMS: A complete 14-point review of systems was performed and is negative except as noted in interval history. PHYSICAL EXAMINATION: VITAL SIGNS: Temperature?97.2, B/P?133/68, Oxygen?Saturation?97% Weight?142?lbs PAIN: 0 - No pain ECOG Performance Status: 0 - Asymptomatic and fully active GENERAL APPEARANCE: Appears well, in no apparent distress, appropriately interactive. HEENT: Normocephalic, no temporal wasting, normal conjunctiva, no scleral icterus, normal hearing, lips without lesions, neck normal range of motion. CARDIOVASCULAR: Not assessed. PULMONARY: Normal respiratory effort, no respiratory distress or use of accessory muscles, speaking in full sentences, no tachypnea. EXTREMITIES: No pedal edema or cyanosis. SKIN: Normal skin appearance. NEUROLOGIC: Alert and ORIENTED x4. PSHYCHIATRIC: Appropriate affect, mood normal, behavior normal, intact thought and speech. LABORATORY DATA: I have personally reviewed and interpreted each of the patient?s relevant lab tests, abnormal findings are below: Date 02/06/25 02/20/25 ??WHITE?BLOOD?COUNT?(Thou/mm3) 4.1 4.3 ??RED?BLOOD?COUNT?(Miln/mm3) 3.79?L 3.79?L ??HEMOGLOBIN?(gm/dl) 11.8?L 12.0 ??HEMATOCRIT?(%) 36.0 36.4 ??PLATELET?COUNT?(Thou/mm3) 137?L 143 ??NEUTROPHILS?%,?AUTO?(%) 62 65 ??LYMPH?%,?AUTO?(%) 25 23 ??NEUTROPHILS,?AUTO?(Thou/mm3) 2.5 2.8 ??GLUCOSE,RANDOM?(mg/dL) ? 95 ??BLOOD?UREA?NITROGEN?(mg/dL) ? 22 ??CREATININE?(mg/dL) ? 1.30 ??SODIUM?(mmol/L) ? 147?H ??POTASSIUM?(mmol/L) ? 4.0 ??CHLORIDE?(mmol/L) ? 106 ??CrCl?(CandG)?(ml/min) ? 36.54 ??AST/SGOT?(Unit/L) ? 22 ??ALT/SGPT?(Unit/L) ? 13 ??ALKALINE?PHOSPHATASE?(Unit/L) ? 59 ??BILIRUBIN,?TOTAL?(mg/dL) ? 0.5 ??PROTEIN?TOTAL?(gm/dl) ? 6.3 ??ALBUMIN,?SERUM?(gm/dl) ? 4.4 ??GLOBULIN?(gm/dl) ? 1.9?L ??ALBUMIN/GLOBULIN?RATIO ? 2.3?H ??CALCIUM,?SERUM?(mg/dL) ? 10.0 ??CALCIUM?SERUM?(CORRECTED)?(mg/dL) ? 10.0 ??CA?125?(O*)?(Unit/mL) ? 16.0 ASSESSMENT/PLAN: Serous cystadenoma of right kidney Patient had treatment with the right nephrectomy No lymphadenopathy on last CT scan No lymph nodes were removed Patient already planned for another imaging As patient is now single kidney patient, I will follow the imaging done at [facility] Discussed signs and symptoms of recurrent tumor CT scan 06/12/2024 showed multiple subcentimeter nodules recommendation is to repeat CT chest Will repeat scan in 2025 Osteoporosis Assessment: Patient has osteoporosis of the hips, confirmed by recent bone density scan. Bone density has decreased since 2016. Currently not taking calcium or vitamin D supplements regularly. Plan: - Start annual infusion therapy for osteoporosis, pending insurance approval - Start Centrum Silver (multivitamin for women over 50) 1 tablet PO daily with lunch - Continue vitamin D3 supplementation daily with food, preferably at lunchtime - Avoid taking other medications with vitamin D3 Lung Nodules Assessment: Patient has stable lymph nodules in both lungs, as seen on recent CT scan. No new nodules identified. 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 Valley fever can cause osteolytic lesions. Additional findings at L4-L5 level, likely arthritic in nature. Plan: - Continue monitoring History of Right Ovarian Cystadenoma and Nephrectomy Assessment: Patient has a history of right ovarian cystadenoma and nephrectomy. No evidence of tumor recurrence. Plan: - Continue regular follow-up and monitoring Chronic Kidney Disease Assessment: Patient has a history of right kidney removal (nephrectomy). Currently taking Renalite as prescribed by Dr. Esqueda for kidney health. Plan: - Continue Renalite as prescribed - Encourage increased water intake ORDERS: Order # Description [id number] Comprehensive Metabolic Panel - 12 + CBC with Auto Diff + MD Follow Up 6 Month + [id number] MD Follow Up 6 Month [id number] Infusion 1 Hour [id number] Infusion 1 Hour [id number] Infusion 1 Hour [id number] Infusion 1 Hour [id number] Infusion 1 Hour RETURN TO CLINIC: I reviewed the diagnosis, prognosis, and recommended treatment/procedure options with the patient (and/or their legal regional sales representative), including the potential benefits, risks, side effects and alternative therapies. We also discussed the option of no treatment and the possibility of clinical trial participation, if applicable. All questions were addressed, and they demonstrated understanding. They provided informed consent to proceed with the proposed plan of care. BILLING AND COMPLIANCE: I reviewed external records from providers outside my specialty as summarized above. I spent a total of 50 minutes on this patient?s care on the day of their visit excluding time spent related to any billed procedures. This time includes time spent with the patient as well as time spent documenting in the medical record, reviewing patients records and tests, obtaining history, placing orders, communicating with other healthcare professionals, counseling the patient, family or caregiver, and/or care coordination for the diagnoses above. Electronically Signed by: Rodolfo Brooks MD T: 3:14 PM CC: oWn?PAZ Hopson PCP: Won Hopson Referring: Won Hopson This document was completed utilizing speech recognition software. Grammatical errors, random word insertions, pronoun errors, and incomplete sentences are an occasional consequence of this system due to software limitations, ambient noise, and hardware issues. Any formal questions or concerns about the content, text or information contained within the body of this dictation should be directly addressed to the provider for clarification.
== END 2025-03-10 23:59 | disposition home or self-care (01) ==
LOC: SCTC 13:30
PROVIDERS: PCP Internal Medicine; Referring Provider Internal Medicine; Visit Provider Internal Medicine Hematology & Oncology
DX: D30.01 Benign neoplasm of right kidney (principal); D27.0 Benign neoplasm of right ovary; Z90.5 Acquired absence of kidney; M81.0 Age-related osteoporosis without current pathological fracture; R91.8 Other nonspecific abnormal finding of lung field; M89.9 Disorder of bone, unspecified; N18.9 Chronic kidney disease, unspecified
CPT/HCPCS: 99212; G0463

== ENCOUNTER → 2025-04-09 | Outpatient (CLI) | payer MEDICARE, SELFPAY ==
[2025-04-09 09:36] LABS: Basophils # (Auto) 0.0 Thou/mm3 (0.0-0.2); Basophils % (Auto) 1 % (0-2.5); Eosinophils # (Auto) 0.2 Thou/mm3 (0.0-0.5); Eosinophils % (Auto) 5 % (0-10); Hematocrit 36.1 % (36.0-46.0); Hemoglobin 11.3 g/dL (12.0-16.0); Immature Granulocytes Auto 0.01 Thou/mm3 (0.00-0.00); Lymphocytes # (Auto) 0.9 Thou/mm3 (1.0-4.8); Lymphocytes % (Auto) 26 % (10-50); Mean Corpuscular HGB Conc 31.3 g/dl (31.0-37.0); Mean Corpuscular Hemoglobin 31.0 pg (25.0-35.0); Mean Corpuscular Volume 99 fL (80-100); Monocytes # (Auto) 0.3 Thou/mm3 (0.0-0.8); Monocytes % (Auto) 9 % (0-12); Neutrophils # (Auto) 2.1 Thou/mm3 (1.8-7.7); Neutrophils % (Auto) 59 % (37-80); Nucleated Red Blood Cell # 0.00 Thou/mm3 (0.00-0.00); Nucleated Red Blood Cell % 0 /100 WBC (0); Platelet Count 142 Thou/mm3 (140-440); RDW Standard Deviation 49.2 fL (36.4-46.3); Red Blood Count 3.64 Miln/mm3 (4.00-5.20); White Blood Count 3.6 Thou/mm3 (3.6-11.0)
[2025-04-09 09:57] LABS: Alanine Aminotransferase 12 U/L (10-49); Albumin, Serum 4.4 gm/dL (3.4-4.8); Albumin/Globulin Ratio 1.8 (1.2-2.2); Alkaline Phosphatase 62 U/L (46-116); Anion Gap 10 (7-16); Aspartate Amino Transferase 23 U/L (0-34); BUN/Creatinine Ratio 20 Ratio (12-20); Bilirubin,Total 0.6 mg/dL (0.3-1.2); Blood Urea Nitrogen 28 mg/dL (9-23); Calcium 10.0 mg/dL (8.3-10.6); Calcium (Corrected) 10.0 mg/dL (8.5-10.1); Carbon Dioxide 30.3 mMol/L (20.0-31.0); Chloride 108 mMol/L (98-107); Creatinine (Component) 1.4 mg/dL (0.6-1.3); Globulin 2.5 gm/dL (2.3-3.5); Glucose 87 mg/dL (74-106); Osmolality,Calculated 298 (275-295); Potassium 3.9 mMol/L (3.4-5.1); Sodium 148 mMol/L (136-145); Total Protein 6.9 gm/dL (5.7-8.2); eGFR 39 See Note
[2025-04-09 10:16] LABS: CA 125 19.0 U/mL (<30.2)
== END | disposition home or self-care (01) ==
LOC: SCTO 08:27
PROVIDERS: PCP Internal Medicine; Referring Provider Internal Medicine Hematology & Oncology; Visit Provider Internal Medicine Hematology & Oncology
DX: C64.9 Malignant neoplasm of unspecified kidney, except renal pelvis (principal); M80.8B Other osteoporosis with current pathological fracture, pelvis
CPT/HCPCS: 36415; 80053; 85025; 86304